=== PATIENT | male | born 1960 ===

== ENCOUNTER 2022-02-04 13:50 | Outpatient (CLI) | payer OTHER | END 2022-02-04 13:51 | disposition home or self-care (01) | LOC: CSHLAB 13:50 | PROVIDERS: ATTEND Internal Medicine Critical Care Medicine | DX: Z20.822 Contact with and (suspected) exposure to COVID-19 (principal) | CPT/HCPCS: 87811 ==

== ENCOUNTER 2022-02-06 07:07 | Outpatient (CLI) | payer OTHER | END 2022-02-06 07:08 | disposition home or self-care (01) | LOC: CSHCP 07:07 | PROVIDERS: ATTEND Internal Medicine Critical Care Medicine | DX: J45.909 Unspecified asthma, uncomplicated (principal); R06.00 Dyspnea, unspecified; R05.9 Cough, unspecified | CPT/HCPCS: 94060; 94618; 94729; 94760 ==